=== PATIENT | male | born 1940 | race Caucasian/White ===

== ENCOUNTER → 2020-01-23 | Outpatient (CLI) | payer MEDICARE ==
[~2020-01-23] MED LIST: REGADENOSON 0.4 MG/5 ML SYRINGE ONE
== END | disposition home or self-care (01) ==
LOC: CFH 11:41
PROVIDERS: ATTEND Internal Medicine Cardiovascular Disease
DX: I44.7 Left bundle-branch block, unspecified (principal); I10 Essential (primary) hypertension
CPT/HCPCS: 78452; 93017; A9502; J2785

== ENCOUNTER 2020-04-18 10:16 | Day surgery (SDC) | payer MEDICARE ==
[~2020-04-18] VITALS: Ht 162.6 cm; Wt 74.5 kg
[2020-04-18] MEDS ORDERED: SODIUM CHLORIDE 0.9% 1,000 ML IV SCH (10:37)
[2020-04-18 10:50] VITALS: BP 139/81
[2020-04-18] MEDS ORDERED: ASPI-496 PO (10:50)
[2020-04-18] MEDS ORDERED: ATOR40TA PO (10:50)
[2020-04-18] MEDS ORDERED: MV-M1CAP15 PO (10:52)
[2020-04-18] MEDS ORDERED: CARV3.1212 PO (10:52)
[2020-04-18] MEDS ORDERED: VALS40TA2 PO (10:52)
[2020-04-18] MEDS ORDERED: CHOL10003 PO (10:52)
[2020-04-18 11:39] LABS: BASOPHILS # (AUTO) 0.03 x10^3/uL (0-0.1); BASOPHILS % (AUTO) 1 % (0-1); EOSINOPHILS # (AUTO) 0.13 x10^3/uL (0-0.4); EOSINOPHILS % (AUTO) 2 % (1-7); LYMPHOCYTES # (AUTO) 1.78 x10^3/uL (1-3.4); LYMPHOCYTES % (AUTO) 31 % (22-44); MD NO; MEAN CORPUSCULAR HEMOGLOBIN 32.1 pg (27.5-34.5); MEAN CORPUSCULAR HGB CONC 33.7 g/dL (33.2-36.2); MEAN CORPUSCULAR VOLUME 95.5 fL (81-97); MEAN PLATELET VOLUME 7.8 fL (7.4-10.4); MONOCYTES # (AUTO) 0.45 x10^3/uL (0.2-0.8); MONOCYTES % (AUTO) 8 % (2-9); NEUTROPHILS # (AUTO) 3.43 x10^3/uL (1.8-6.8); NEUTROPHILS % (AUTO) 59 % (42-75); PLATELET COUNT 177 x10^3/uL (130-400); RED BLOOD COUNT 4.73 x10^6/uL (4.38-5.82); RED CELL DISTRIBUTION WIDTH 13.6 % (9.4-14.8)
[2020-04-18 11:51] LABS: ANION GAP 9 mmol/L (5-15); CALCIUM 8.8 mg/dL (8.5-10.1); CHLORIDE 110 mmol/L (98-107)
[2020-04-18 11:54] LABS: CREATININE 1.04 mg/dL (0.7-1.3)
[2020-04-18] MEDS ORDERED: FENTANYL PF 100 MCG/2ML ONE (12:12)
[2020-04-18] MEDS ORDERED: MIDAZOLAM 1 MG/ML, 2ML ONE (12:12)
[2020-04-18] MEDS ORDERED: CEFAZOLIN PMX 1GM/50ML 50 ML ONE (12:13)
[2020-04-18] MEDS ORDERED: LIDOCAINE 1%, 20ML ONE (12:13)
[2020-04-18] MEDS ORDERED: LIDOCAINE 2%, 20ML ONE (12:42)
[2020-04-18] MEDS ORDERED: HOLD MEDICATION MC PRN (14:00)
== END 2020-04-18 14:52 | disposition home or self-care (01) ==
LOC: CACL 10:16
PROVIDERS: ATTEND Internal Medicine Cardiovascular Disease
DX: Z45.010 Encounter for checking and testing of cardiac pacemaker pulse generator [battery] (principal); I49.5 Sick sinus syndrome; I10 Essential (primary) hypertension; E78.5 Hyperlipidemia, unspecified; Z79.82 Long term (current) use of aspirin; Z79.899 Other long term (current) drug therapy; Z95.5 Presence of coronary angioplasty implant and graft
CPT/HCPCS: 33228; 36415; 71046; 80048; 85025; 99156; 99157; C1785; J0690; J2250; J3010

== ENCOUNTER 2021-03-11 07:55 | Outpatient (CLI) | payer MEDICARE ==
[~2021-03-11 07:55] MED LIST changes: +ASPI-496 PO; +ATOR40TA PO; +CARV3.1212 PO; +CHOL10003 PO; +MV-M1CAP15 PO; -REGADENOSON 0.4 MG/5 ML SYRINGE ONE; +VALS40TA2 PO
== END 2021-03-11 23:59 | disposition home or self-care (01) ==
LOC: CVU 07:55
PROVIDERS: ATTEND Internal Medicine Cardiovascular Disease
DX: I08.3 Combined rheumatic disorders of mitral, aortic and tricuspid valves (principal); I25.10 Atherosclerotic heart disease of native coronary artery without angina pectoris; I10 Essential (primary) hypertension; I65.21 Occlusion and stenosis of right carotid artery; Z95.0 Presence of cardiac pacemaker
CPT/HCPCS: 93306; 93880